=== PATIENT | male | born 1980 | race Hispanic/Latino ===

== ENCOUNTER 2022-10-07 16:00 | Outpatient (RCR) | payer BC | END 2022-10-24 | LOC: OT 16:00 | PROVIDERS: ATTEND Specialist | DX: M77.12 Lateral epicondylitis, left elbow (principal) ==

== ENCOUNTER 2022-11-08 16:23 | Outpatient (RCR) | payer BC | END 2022-11-24 | LOC: OT 16:23 | PROVIDERS: ATTEND Specialist | DX: M77.12 Lateral epicondylitis, left elbow (principal); M25.522 Pain in left elbow; R53.1 Weakness ==